=== PATIENT | male | born 1965 | race Caucasian/White ===

== ENCOUNTER 2019-04-13 15:55 | Emergency (ER) | payer BC ==
[2019-04-13] MEDS ORDERED: Sodium Chloride 0.9% 10 ML Syringe FLUSH PRN (15:58)
[2019-04-13] MEDS ORDERED: Sodium Chloride 0.9% 2.5 ML Syringe FLUSH PRN (15:58)
[2019-04-13] MEDS ORDERED: Sodium Chloride 0.9% 1,000 ML IV ONE (15:58)
--- NOTE | 2019-04-13 16:16 | EDM.PDOC ---
ED HPI GENERAL MEDICAL PROBLEM - General Chief Complaint: Flank Pain Stated Complaint: BACK PAIN Time Seen by Provider: 04/13/19 16:15 Source of Information: Reports: Patient History Limitations: Reports: No Limitations - History of Present Illness INITIAL COMMENTS - FREE TEXT/NARRATIVE: HISTORY AND PHYSICAL: History of present illness: Patient is a 53-year-old male presents to the ED with complaint of flank pain. He states he has a history of kidney stones and believes that he may have one now. Some suprapubic abdominal pain and has had some nausea and vomiting. No fevers, chills, diarrhea, dysuria, hematuria. He denies significant past medical history Review of systems: As per history of present illness and below otherwise all systems reviewed and negative. Past medical history: As per history of present illness and as reviewed below otherwise noncontributory. Surgical history: As per history of present illness and as reviewed below otherwise noncontributory. Social history: No reported history of drug or alcohol abuse. Family history: As per history of present illness and as reviewed below otherwise noncontributory. Physical exam: General: Patient sitting comfortably in no acute distress and nontoxic appearing HEENT: Atraumatic, normocephalic, pupils reactive, negative for conjunctival pallor or scleral icterus, mucous membranes moist, throat clear, neck supple, nontender, trachea midline. No meningeal signs. Lungs: Clear to auscultation, breath sounds equal bilaterally, chest nontender. Heart: S1S2, regular, negative for clicks, rubs, or overt murmur. Abdomen: Soft, nondistended, nontender. Negative for masses or hepatosplenomegaly. Negative for costovertebral tenderness. No rigidity, rebound , guarding. Pelvis: Stable nontender. Genitourinary: Deferred. Rectal: Deferred. Extremities: Atraumatic, negative for cords or calf pain. Neurovascular unremarkable. Neuro: Awake, alert, oriented. Cranial nerves II through XII unremarkable. Cerebellum unremarkable. Motor and sensory unremarkable throughout. Exam nonfocal. Notes: Discussed with dr. De La Cruz, he will follow up with patient in his clinic on 04/18/19 Diagnostics: CBC, CMP, UA, CT abdomen pelvis wo contrast Therapeutics: 1 L normal saline IV 30mg Toradol IV Prescriptions: Flomax [place] Zofran Impression: Nephrolithiasis Plan: Drink plenty fluids and take medication as instructed Follow-up with Dr. De La Cruz next week, please call to schedule appointment for Wednesday afternoon Follow-up with primary care provider regarding liver masses Return to ED as needed as discussed Definitive disposition and diagnosis as appropriate pending reevaluation and review of above. Right Flank Pain Score (Numeric/FACES): 8 - Related Data Allergies Allergy/AdvReac Type Severity Reaction Status Date / Time No Known Allergies Allergy Verified 04/13/19 16:09 Home Meds: Home Meds Acetaminophen/HYDROcodone [[place] 325-5 MG] 1 tab PO Q6H PRN #12 tablet 04/13/19 [Rx] Aspirin [Low Dose Aspirin EC] 81 mg PO DAILY 04/13/19 [History] Ondansetron [Zofran ODT] 4 mg PO Q6H PRN #12 tab.dis 04/13/19 [Rx] Tamsulosin HCl [Flomax] 0.4 mg PO DAILY #10 capsule 04/13/19 [Rx] Past Medical History HEENT History: Reports: Impaired Vision Genitourinary History: Reports: Renal Calculus - Infectious Disease History Infectious Disease History: Reports: Chicken Pox, Measles - Past Surgical History GI Surgical History: Reports: Appendectomy Social & Family History - Family History Family Medical History: Noncontributory - Tobacco Use Smoking Status *Q: Never Smoker Second Hand Smoke Exposure: No - Recreational Drug Use Recreational Drug Use: No ED ROS GENERAL - Review of Systems Review Of Systems: ROS reveals no pertinent complaints other than HPI. ED EXAM, RENAL/ - Physical Exam Exam: See Below (See dictation) Course - Vital Signs Last Recorded V/S: Last Vital Signs Temp 97.9 F 04/13/19 16:05 Pulse 67 04/13/19 19:09 Resp 16 04/13/19 19:09 BP 131/82 04/13/19 19:09 Pulse Ox 93 L 04/13/19 19:09 - Orders/Labs/Meds Orders: Active Orders 24 hr Category Date Time Status CULTURE URINE [RM] Stat Lab 04/13/19 16:15 Received Saline Lock Insert [OM.PC] Stat Oth 04/13/19 15:58 Ordered Labs: Laboratory Tests 04/13/19 04/13/19 04/13/19 Range/Units 16:10 16:10 16:15 WBC 10.64 (4.0-11.0) K/uL RBC 4.76 (4.50-5.90) M/uL Hgb 15.5 (13.0-17.0) g/dL Hct 44.0 (38.0-50.0) % MCV 92.4 (80.0-98.0) fL MCH 32.6 H (27.0-32.0) pg MCHC 35.2 (31.0-37.0) g/dL RDW Std Deviation 43.9 (28.0-62.0) fl RDW Coeff of Mishel 13 (11.0-15.0) % Plt Count 224 (150-400) K/uL MPV 10.40 (7.40-12.00) fL Neut % (Auto) 73.4 (48.0-80.0) % Lymph % (Auto) 17.5 (16.0-40.0) % Rhea % (Auto) 6.2 (0.0-15.0) % Eos % (Auto) 2.6 (0.0-7.0) % Baso % (Auto) 0.3 (0.0-1.5) % Neut # (Auto) 7.8 H (1.4-5.7) K/uL Lymph # (Auto) 1.9 (0.6-2.4) K/uL Rhea # (Auto) 0.7 (0.0-0.8) K/uL Eos # (Auto) 0.3 (0.0-0.7) K/uL Baso # (Auto) 0.0 (0.0-0.1) K/uL Nucleated RBC % 0.0 /100WBC Nucleated RBCs # 0 K/uL Sodium 139 (136-148) mmol/L Potassium 3.7 (3.5-5.1) mmol/L Chloride 100 (98-107) mmol/L Carbon Dioxide 27.9 (21.0-32.0) mmol/L BUN 11 (7.0-18.0) mg/dL Creatinine 0.8 (0.8-1.3) mg/dL Est Cr Clr Drug Dosing 107.73 mL/min Estimated GFR (MDRD) > 60.0 ml/min Glucose 94 (74-106) mg/dL Calcium 9.8 (8.5-10.1) mg/dL Total Bilirubin 0.5 (0.2-1.0) mg/dL AST 18 (15-37) IU/L ALT 23 (14-63) IU/L Alkaline Phosphatase 86 (46-116) U/L Total Protein 6.8 (6.4-8.2) g/dL Albumin 3.8 (3.4-5.0) g/dL Globulin 3.0 (2.6-4.0) g/dL Albumin/Globulin Ratio 1.3 (0.9-1.6) Urine Color YELLOW Urine Appearance SLT CLOUDY Urine pH 5.5 (5.0-8.0) Ur Specific [place] 1.010 (1.001-1.035) Urine Protein NEGATIVE (NEGATIVE) mg/dL Urine Glucose (UA) NEGATIVE (NEGATIVE) mg/dL Urine Ketones NEGATIVE (NEGATIVE) mg/dL Urine Occult Blood LARGE H (NEGATIVE) Urine Nitrite NEGATIVE (NEGATIVE) Urine Bilirubin NEGATIVE (NEGATIVE) Urine Urobilinogen 0.2 (<2.0) EU/dL Ur Leukocyte Esterase SMALL H (NEGATIVE) Urine RBC 5-8 (0-2/HPF) Urine WBC 3-5 (0-5/HPF) Ur Epithelial Cells OCCASIONAL (NONE-FEW) Urine Bacteria RARE (NEGATIVE) Urine Mucus LIGHT (NONE-MOD) Meds: Medications Discontinued Medications Generic Name Dose Route Start Last Admin Trade Name Freq PRN Reason Stop Dose Admin Sodium Chloride 1,000 mls @ 999 mls/hr 04/13/19 15:58 04/13/19 16:45 Normal Saline IV 04/13/19 16:58 999 mls/hr STAT ONE Administration Ketorolac Tromethamine 30 mg 04/13/19 18:03 04/13/19 18:20 Toradol IVPUSH 04/13/19 18:04 30 mg ONETIME ONE Administration Sodium Chloride 10 ml 04/13/19 15:58 04/13/19 16:46 Saline Flush FLUSH 10 ml ASDIRECTED PRN Administration Keep Vein Open Sodium Chloride 2.5 ml 04/13/19 15:58 04/13/19 16:46 Saline Flush FLUSH 2.5 ml ASDIRECTED PRN Administration Keep Vein Open Departure - Departure Time of Disposition: 18:36 Disposition: Home, Self-Care 01 Condition: Good Clinical Impression: Nephrolithiasis - Discharge Information Prescriptions: Acetaminophen/HYDROcodone [[place] 325-5 MG] 1 tab PO Q6H PRN #12 tablet PRN Reason: Pain (Severe 7-10) Ondansetron [Zofran ODT] 4 mg PO Q6H PRN #12 tab.dis PRN Reason: Nausea/Vomiting Tamsulosin HCl [Flomax] 0.4 mg PO DAILY #10 capsule Referrals: PCP,None [Primary Care Provider] - Forms: ED Department Discharge Additional Instructions: The following information is given to patients seen in the emergency department who are being discharged to home. This information is to outline your options for follow-up care. We provide all patients seen in our emergency department with a follow-up referral. The need for follow-up, as well as the timing and circumstances, are variable depending upon the specifics of your emergency department visit. If you don't have a primary care physician on staff, we will provide you with a referral. We always advise you to contact your personal physician following an emergency department visit to inform them of the circumstance of the visit and for follow-up with them and/or the need for any referrals to a consulting specialist. The emergency department will also refer you to a specialist when appropriate. This referral assures that you have the opportunity for follow-up care with a specialist. All of these measure are taken in an effort to provide you with optimal care, which includes your follow-up. Under all circumstances we always encourage you to contact your private physician who remains a resource for coordinating your care. When calling for follow-up care, please make the office aware that this follow-up is from your recent emergency room visit. If for any reason you are refused follow-up, please contact the [facility] Emergency Department at and asked to speak to the emergency department charge nurse. [facility] Primary [facility] [address] [place] [id number] [facility] [address] [place] [id number] [facility] Specialty Care - Urology [address] [place] [phone] Drink plenty fluids and take medication as instructed Follow-up with Dr. De La Cruz next week, please call to schedule appointment for Wednesday afternoon Follow-up with primary care provider regarding liver masses Return to ED as needed as discussed - My Orders Last 24 Hours: My Active Orders 04/13/19 15:58 Saline Lock Insert [OM.PC] Stat 04/13/19 16:15 CULTURE URINE [RM] Stat - Assessment/Plan Last 24 Hours: My Active Orders 04/13/19 15:58 Saline Lock Insert [OM.PC] Stat 04/13/19 16:15 CULTURE URINE [RM] Stat
[2019-04-13 17:06] LABS: CHLORIDE,CL 100 mmol/L (98-107); SODIUM,NA 139 mmol/L (136-148)
[2019-04-13] MEDS ORDERED: Ketorolac 30 MG/ML SDV IVPUSH ONE (18:03)
--- NOTE | 2019-04-13 18:09 | CT ---
INDICATION: Right flank pain TECHNIQUE: CT abdomen and pelvis without contrast. COMPARISON: None available FINDINGS: Lower chest: A small calcified right lower lobe granuloma. A small hiatal hernia. Liver: Several low-attenuation hepatic masses, measuring up to 5.2 x 3.6 cm on image 32, not well evaluated. Several smaller near water attenuation low-density lesions measuring up to 1.2 cm in the lateral segment of the left hepatic lobe, which could represent cysts. Spleen: Unremarkable. Pancreas: Unremarkable. Gallbladder and bile ducts: Possible gallbladder sludge. Adrenal glands: Unremarkable. Kidneys: Mild right hydronephrosis with a 5 mm calculus at the UPJ. A 4 mm nonobstructive right renal lower pole calcification and an additional punctate calcification on image 50. No left hydronephrosis or discrete urolithiasis. GI tract: No bowel obstruction. Apparent post appendectomy changes. No significant pericolonic changes. At least 2 small descending colon diverticula noted. Vascular structures: Minor atherosclerotic changes. Lymph nodes: No abnormally enlarged lymph nodes. Miscellaneous: No free fluid or free air. Fat containing inguinal hernias, left greater than right, and a small fat containing paraumbilical hernia. Pelvic Organs: Within normal limits for age. Bones: Mild compression deformity of the T10 vertebral body. A sclerotic focus in the left iliac bone could represent a bone island. IMPRESSION: Mild right obstructive uropathy due to a 5 mm calculus at the UPJ. Additional nonobstructive right renal calcifications. Several low-attenuation hepatic masses, not well evaluated. Recommend contrast MRI for further evaluation and exclusion of neoplasm/metastatic disease. Dictated by Garth Roberts MD @ 04/13/2019 6:08:39 PM Please note that all CT scans at this facility use dose modulation, iterative reconstruction, and/or weight-based dosing when appropriate to reduce radiation dose to as low as reasonably achievable. Dictated by: Garth Roberts MD @ 04/13/2019 18:08:46 (Electronically Signed)
== END 2019-04-13 19:09 | disposition home or self-care (01) ==
LOC: MW.ED 15:55
DX: N13.2 Hydronephrosis with renal and ureteral calculous obstruction (principal); Z79.82 Long term (current) use of aspirin; Z87.442 Personal history of urinary calculi
CPT/HCPCS: 74176; 80053; 81001; 85025; 87086; 96361; 96374; 99284; J1885; J7040; 99283